=== PATIENT | male | born 1950 | race Caucasian/White ===

== ENCOUNTER 2016-09-20 10:52 | Day surgery (SDC) | payer OTHER ==
[~2016-09-20] VITALS: Ht 177.8 cm; Wt 96.6 kg
[~2016-09-20 10:52] MED LIST: AMLODIPINE BESYL5 MG PO; ASPIR 8181 M1 PO; BENTYL10 MG PO; CIPRO500 MG PO; FLAGYL500 MG PO; LINZESS145 MCG PO; LISINOPRIL10 MG PO; PRAVACHOL40 MG PO; PRAVACHOL80 MG PO; PROBIOTIC1 EAC1 PO; VITAMIN D-32000 UNI2 PO; VITAMIN D35000 UNIT PO
== END 2016-09-20 13:44 | disposition home or self-care (01) ==
LOC: PAIN 10:52
DX: M47.812 Spondylosis without myelopathy or radiculopathy, cervical region (principal); M54.2 Cervicalgia; M75.51 Bursitis of right shoulder; I10 Essential (primary) hypertension; Z87.891 Personal history of nicotine dependence; K21.9 Gastro-esophageal reflux disease without esophagitis
CPT/HCPCS: J1030; J2250; J3010; S0020